=== PATIENT | female | born 1975 | race Asian ===

== ENCOUNTER 2016-10-18 05:50 | Observation (INO) | payer OTHER ==
[2016-10-18] VITALS (8 sets, daily range): BP systolic 112–133; BP diastolic 66–85
[~2016-10-18] VITALS: Ht 160 cm; Wt 74.8 kg
[~2016-10-18 05:50] MED LIST: DOCU-109 PO; FERR325T58 PO; IBUP-1027 PO; MULT1TAB52 PO; OXYC-323 PO
[2016-10-18 06:27] LABS: NEG OBC UR NEG; POS OBC UR POS
[2016-10-18 06:45] LABS: BASO # 0.1 x10^3/uL (0.0-0.2); BASO % 1 % (0-3); EOS % 2 % (0-3); HEMATOCRIT 39.2 % (36.0-47.0); HEMOGLOBIN 13.1 g/dL (12.0-15.5); LYMPH # 1.6 x10^3/uL (1.0-4.8); LYMPH % 18 % (24-48); MEAN CORPUSCULAR HEMOGLOBIN 29 pg (25-35); MEAN CORPUSCULAR HGB CONC 33 g/dL (31-37); MEAN CORPUSCULAR VOLUME 88 fL (79-100); MONO % 6 % (0-9); NEUT % 74 % (31-73); PLATELET COUNT 193 x10^3/uL (140-400); RED BLOOD COUNT 4.46 x10^6/uL (3.50-5.40); RED CELL DISTRIBUTION WIDTH 13.8 % (11.5-14.5); WHITE BLOOD COUNT 8.9 x10^3/uL (4.0-11.0)
[2016-10-18] MEDS ORDERED: LIDOCAINE 1% 1 ML SYRINGE. ID PRN (07:00)
[2016-10-18] MEDS ORDERED: MORPHINE SULFATE 2 MG/ML DISP.SYRIN. IV PRN (07:00)
[2016-10-18] MEDS ORDERED: HYDROmorphone 2 MG/ML VIAL IV PRN (07:00)
[2016-10-18] MEDS ORDERED: IV RINGERS,LACTATED 1000ML 1,000 ML IV SCH (07:00)
[2016-10-18] MEDS ORDERED: fentaNYL PF VIAL 100 MCG/2 ML VIAL IV PRN (07:00)
[2016-10-18] MEDS ORDERED: ONDANSETRON PF 4 MG/2 ML VIAL. IV PRN ×2 (07:00→10:30)
[2016-10-18] MEDS ORDERED: PROCHLORPERAZINE 10 MG/2 ML VIAL. IV PRN ×2 (07:00→10:30)
[2016-10-18] MEDS ORDERED: LIDOCAINE 1%/EPI 1:100,000 20 ML VIAL. ONE (07:08)
[2016-10-18] MEDS ORDERED: BUPIVACAINE MPF 0.25% 30 ML VIAL. ONE (07:08)
[2016-10-18] MEDS ORDERED: SURGICEL HEMOSTAT 4X8 EACH. ONE (07:08)
[2016-10-18] MEDS ORDERED: ESTROGENS, CONJ VAGINAL CREAM 30GM TUBE. ONE (07:08)
[2016-10-18] MEDS ORDERED: INDIGOTINDISULFONATE SODIUM 40 MG/5 ML AMPUL. IV ONE (07:15)
[2016-10-18] MEDS ORDERED: LIDOCAINE 2% PF Vial for OR 5 ML VIAL. ONE (07:23)
[2016-10-18] MEDS ORDERED: ROCURONIUM 100 MG/10 ML VIAL. ONE (07:23)
[2016-10-18] MEDS ORDERED: fentaNYL PF VIAL 100 MCG/2 ML VIAL ONE ×3 (07:23→10:32)
[2016-10-18] MEDS ORDERED: DEXAMETHASONE SOD PHOS 20 MG/5 ML VIAL. ONE (07:23)
[2016-10-18] MEDS ORDERED: ONDANSETRON PF 4 MG/2 ML VIAL. ONE (07:23)
[2016-10-18] MEDS ORDERED: PROPOFOL 20 ML IV ONE (07:23)
[2016-10-18] MEDS ORDERED: MIDAZOLAM HCL/PF 2 MG/2 ML VIAL. ONE (07:24)
[2016-10-18] MEDS ORDERED: BUPIVAC MPF-EPI 0.5%-1:200000 30 ML VIAL. ONE (07:39)
[2016-10-18] MEDS ORDERED: FAMOTIDINE 20 MG/2 ML VIAL ONE (08:46)
[2016-10-18] MEDS ORDERED: GELATIN MUCOSAL POWDER. ONE (09:48)
[2016-10-18] MEDS ORDERED: THROMBIN TOPICAL 5,000 UNIT VIAL. ONE (09:50)
[2016-10-18] MEDS ORDERED: DESFLURANE > 120 MINUTES IH ONE (09:54)
[2016-10-18] MEDS ORDERED: NEOSTIGMINE 10 MG/10 ML VIAL. ONE (09:57)
[2016-10-18] MEDS ORDERED: GLYCOPYRROLATE 1 MG/5 ML VIAL. ONE (09:57)
[2016-10-18] MEDS ORDERED: ceFAZolin 2GM PREMIX 2 GM/50 ML BAG IV ONE (10:00)
[2016-10-18] MEDS ORDERED: KETOROLAC 30 MG/ML INJ FOR OR. INJ ONE (10:00)
[2016-10-18] MEDS ORDERED: diphenhydrAMINE HCL 25 MG CAPSULE PO PRN (10:30)
[2016-10-18] MEDS ORDERED: CALCIUM CARBONATE 500 MG TAB.CHEW PO PRN (10:30)
[2016-10-18] MEDS ORDERED: diphenhydrAMINE 50 MG/ML VIAL IV PRN (10:30)
[2016-10-18] MEDS ORDERED: ZOLPIDEM 5 MG TABLET. PO PRN (10:30)
[2016-10-18] MEDS ORDERED: KETOROLAC TROMETHAMINE 30 MG/ML INJ. IV PRN (10:30)
[2016-10-18] MEDS ORDERED: 0.9 % SODIUM CHLORIDE 10 ML DISP.SYRIN. IV PRN (10:30)
[2016-10-18] MEDS ORDERED: DEXTROSE 50% 25 GM / 50ML DISP.SYRIN. IV PRN (10:30)
[2016-10-18] MEDS ORDERED: SIMETHICONE 80 MG TAB.CHEW PO PRN (10:30)
--- NOTE | 2016-10-18 10:30 | PDOC ---
BRIEF OPERATIVE NOTE Pre-Op Diagnosis 1. Endometriosis 2. Dysmenorrhea 3. CPP Post-Op Diagnosis SAme and Fibroids Procedure Performed LAV & RSO Surgeon Dr. Salgado Anesthesia Type: General Blood Loss 400 ml Specimens Obtained uterus, cervix, right fallopian tube and right ovary Findings Endometriosis stage 4 with obliterated culde sac, bilateral ovarian endometriomas, pelvic sidewall adhesions; nml left fallopian tube and ovary. Complications none ALKA SALGADO Jr, MD Oct 18, 2016 10:30
[2016-10-18] MEDS ORDERED: PROCHLORPERAZINE 10 MG/2 ML VIAL. ONE (10:32)
[2016-10-18] MEDS: fentaNYL PF VIAL 100 MCG/2 ML VIAL IV PRN ×2 (10:34→11:00)
--- NOTE | 2016-10-18 11:35 | OP ---
DATE OF SURGERY: PREOPERATIVE DIAGNOSES: 1. Endometriosis. 2. Dysmenorrhea. 3. Chronic pelvic pain. POSTOPERATIVE DIAGNOSES: 1. Endometriosis. 2. Dysmenorrhea. 3. Chronic pelvic pain. 4. Fibroids. PROCEDURE: LAVH-RSO. SURGEON: Dr. Alka Salgado. ANESTHESIA: GETA. ESTIMATED BLOOD LOSS: 400 mL. COMPLICATIONS: None. FINDINGS: Endometriosis stage 4 with an obliterated cul-de-sac, bilateral ovarian endometriomas, pelvic sidewall adhesions, normal left fallopian tube and ovary. SUMMARY: A 40-year-old female, 7-year history of chronic pelvic pain and stage 4 endometriosis. The patient had been treated previously with Depo Lupron for 6 months prior to surgery. The patient required hysterectomy. The patient was counseled on LAVH-RSO and voiced a clear understanding to proceed. DESCRIPTION OF PROCEDURE: The patient was taken to surgery suite and placed in dorsal lithotomy position. She was prepped with Betadine solution for vaginal prep and ChloraPrep for abdominal prep. After adequate anesthesia, bivalve speculum was placed vaginally. Anterior lip of the cervix was grasped with a single-toothed tenaculum. The Yumber uterine manipulator was then placed. The bivalve speculum was removed. Attention was now placed on abdomen. Small transverse skin incision made just below the umbilicus with scalpel. Veress needle was then placed through the infraumbilical incision site. The abdomen was allowed to insufflate up to 1-1/2 liters CO2 gas. Veress needle was then removed, 5 mm trocar was placed. Scope was positioned. Uterus was enlarged with multiple fibroids, pelvic sidewall, multiple pelvic several adhesions involving bilateral fallopian tubes and ovaries as well as bilateral ovarian cysts. Two additional incisions made in the left lower quadrant, at which 5 mm trocars were placed. Suprapubic incision site was made, at which a 5 mm trocar was placed as well. With the aid of graspers and EnSeal device, the right round ligament was coagulated and dissected. The right infundibulopelvic ligament was coagulated and dissected. There were endometrioma that was incised and drained. The right pelvic sidewall as well as the right broad ligament was coagulated and dissected. The posterior pelvic adhesions were dissected ____. The left round ligament was coagulated and dissected with EnSeal device. The uteroovarian pedicle was partially coagulated and dissected. Due to the fibroids and the obliterated cul-de-sac, we then proceeded vaginally. Attention was placed vaginally in which a weighted speculum and curved Estefany was placed. Some of the cervix was grasped on the anterior lip and posterior lip with double tooth tenaculum. 1% lidocaine with epinephrine was injected circumferentially. Bovie cautery was utilized to circumscribe the cervix. The vaginal mucosa was dissected away from the lower uterine segment using a moist Ray-Vidal. The parametrial tissue was clamped bilaterally with curved Ritesh clamp, cut and suture ligated with 2-0 Vicryl suture. We then entered the posterior cul-de-sac sharply using curved Castillo scissors. The long weighted speculum was then placed. The uterine artery was clamped bilaterally, cut, and suture ligated. The uterosacral ligament was then clamped, cut, tied with 2-0 Vicryl suture as well. The uterus was bivalved and removed. The right fallopian tube and ovary was also removed. The pedicles were hemostatic. A modified Evans culdoplasty was performed incorporating the uterosacral ligaments bilaterally. The remainder of the vaginal cuff was reapproximated using 2-0 Vicryl suture in a [id number] manner. Moist vaginal packing was placed. Attention was then placed on abdomen. The abdomen was insufflated up to 1-1/2 liters CO2 gas. The pedicles were visualized with suction irrigation and appeared to be hemostatic. We did use the Gelfoam powder to ensure good hemostasis along the posterior vaginal cuff. The trocars were then removed under direct visualization. The abdomen was allowed to deflate as much as possible along with mechanical manipulation. The four skin incisions were reapproximated using 4-0 Vicryl suture in subcuticular manner. A 0.5% lidocaine with epinephrine was injected at each incision site. The patient tolerated the procedure well and was taken to recovery room in stable condition. Sponge and needle count correct x 3. ALKA SALGADO MD DR: LIBIA/angeles JOB#: [id number] / [id number]
[2016-10-18] MEDS: GABAPENTIN 300 MG CAPSULE. PO SCH ×2 (15:10→21:54)
[2016-10-18] MEDS: oxyCODONE/APAP 5/325 1 TAB TABLET PO PRN (21:56)
[2016-10-19 00:11] VITALS: BP 130/73
[2016-10-19 01:12] LABS: BASO % 0 % (0-3); EOS % 0 % (0-3); HEMATOCRIT 34.1 % (36.0-47.0); HEMOGLOBIN 11.5 g/dL (12.0-15.5); LYMPH % 6 % (24-48); MEAN CORPUSCULAR HEMOGLOBIN 29 pg (25-35); MEAN CORPUSCULAR HGB CONC 34 g/dL (31-37); MEAN CORPUSCULAR VOLUME 87 fL (79-100); MONO % 4 % (0-9); NEUT % 90 % (31-73); PLATELET COUNT 207 x10^3/uL (140-400); RED BLOOD COUNT 3.94 x10^6/uL (3.50-5.40); RED CELL DISTRIBUTION WIDTH 13.4 % (11.5-14.5); WHITE BLOOD COUNT 16.1 x10^3/uL (4.0-11.0)
[2016-10-19 05:32] LABS: PLT ESTIMATE ADEQUATE (ADEQUATE)
[2016-10-19 05:42] VITALS: BP 139/73
[2016-10-19] MEDS: GABAPENTIN 300 MG CAPSULE. PO SCH (06:23)
[2016-10-19] MEDS: oxyCODONE/APAP 5/325 1 TAB TABLET PO PRN ×2 (08:41→12:17)
--- NOTE | 2016-10-19 09:04 | PDOC ---
SURGICAL PROGRESS NOTE Subjective Pt. feeling well. Ambulating, voiding and tolerating regular diet. Vital Signs Vital Signs Date Time Temp Pulse Resp B/P (MAP) Pulse Ox O2 Delivery O2 Flow Rate FiO2 10/19/16 08:41 20 Room Air 10/19/16 05:42 98.1 73 139/73 (95) 96 98.1 10/18/16 11:30 2.0 I&O Intake and Output 10/19/16 07:00 Intake Total 600 ml Output Total 3080 ml Balance -2480 ml Intake Oral 600 ml Output Urine Total 3080 ml PATIENT HAS A CLARK: No General: Alert, Oriented X3, Cooperative HEENT: Atraumatic Lungs: Clear to auscultation Heart: Regular rate Abdomen: Normal bowel sounds, Soft, No masses Psych/Mental Status: Mental status NL Labs Laboratory Tests Test 10/18/16 06:10 10/18/16 06:30 10/19/16 00:45 Urine Test Negative (NEG) White Blood Count 8.9 x10^3/uL (4.0-11.0) 16.1 x10^3/uL (4.0-11.0) Red Blood Count 4.46 x10^6/uL (3.50-5.40) 3.94 x10^6/uL (3.50-5.40) Hemoglobin 13.1 g/dL (12.0-15.5) 11.5 g/dL (12.0-15.5) Hematocrit 39.2 % (36.0-47.0) 34.1 % (36.0-47.0) Mean Corpuscular Volume 88 fL (79-100) 87 fL (79-100) Mean Corpuscular Hemoglobin 29 pg (25-35) 29 pg (25-35) Mean Corpuscular Hemoglobin Concent 33 g/dL (31-37) 34 g/dL (31-37) Red Cell Distribution Width 13.8 % (11.5-14.5) 13.4 % (11.5-14.5) Platelet Count 193 x10^3/uL (140-400) 207 x10^3/uL (140-400) Neutrophils (%) (Auto) 74 % (31-73) 90 % (31-73) Lymphocytes (%) (Auto) 18 % (24-48) 6 % (24-48) Monocytes (%) (Auto) 6 % (0-9) 4 % (0-9) Eosinophils (%) (Auto) 2 % (0-3) 0 % (0-3) Basophils (%) (Auto) 1 % (0-3) 0 % (0-3) Neutrophils # (Auto) 6.6 x10^3uL (1.8-7.7) 14.4 x10^3uL (1.8-7.7) Lymphocytes # (Auto) 1.6 x10^3/uL (1.0-4.8) 1.0 x10^3/uL (1.0-4.8) Monocytes # (Auto) 0.5 x10^3/uL (0.0-1.1) 0.7 x10^3/uL (0.0-1.1) Eosinophils # (Auto) 0.1 x10^3/uL (0.0-0.7) 0.0 x10^3/uL (0.0-0.7) Basophils # (Auto) 0.1 x10^3/uL (0.0-0.2) 0.0 x10^3/uL (0.0-0.2) Segmented Neutrophils % 94 % (35-66) Band Neutrophils % 1 % (0-9) Lymphocytes % 4 % (24-48) Monocytes % 1 % (0-10) Platelet Estimate Adequate (ADEQUATE) Laboratory Tests Test 10/19/16 00:45 White Blood Count 16.1 x10^3/uL (4.0-11.0) Red Blood Count 3.94 x10^6/uL (3.50-5.40) Hemoglobin 11.5 g/dL (12.0-15.5) Hematocrit 34.1 % (36.0-47.0) Mean Corpuscular Volume 87 fL (79-100) Mean Corpuscular Hemoglobin 29 pg (25-35) Mean Corpuscular Hemoglobin Concent 34 g/dL (31-37) Red Cell Distribution Width 13.4 % (11.5-14.5) Platelet Count 207 x10^3/uL (140-400) Neutrophils (%) (Auto) 90 % (31-73) Lymphocytes (%) (Auto) 6 % (24-48) Monocytes (%) (Auto) 4 % (0-9) Eosinophils (%) (Auto) 0 % (0-3) Basophils (%) (Auto) 0 % (0-3) Neutrophils # (Auto) 14.4 x10^3uL (1.8-7.7) Lymphocytes # (Auto) 1.0 x10^3/uL (1.0-4.8) Monocytes # (Auto) 0.7 x10^3/uL (0.0-1.1) Eosinophils # (Auto) 0.0 x10^3/uL (0.0-0.7) Basophils # (Auto) 0.0 x10^3/uL (0.0-0.2) Segmented Neutrophils % 94 % (35-66) Band Neutrophils % 1 % (0-9) Lymphocytes % 4 % (24-48) Monocytes % 1 % (0-10) Platelet Estimate Adequate (ADEQUATE) Assessment/Plan A: POD#1 s/p LAVH & RSO P: D/c home. Problems: ALKA HALE Jr, MD Oct 19, 2016 09:04
--- NOTE | 2016-10-19 09:06 | DISCH ---
DISCHARGE INSTRUCTIONS Condition on Discharge Condition on Discharge: Stable Activity After Discharge Activity Instructions for Disc: Activity as tolerated Lifting Instructions after Dis: No heavy lifting Driving Instructions after Dis: No driving for 2 weeks Diet after Discharge Diet after Discharge: Regular Contacting the DRPancho after DC Call your doctor for: Concerns you may have Follow-Up Follow up with: Dr. Salgado in 1 week. ALKA SALGADO Jr, MD Oct 19, 2016 09:06
[2016-10-19] MEDS ORDERED: DOCU-109 PO (09:07)
[2016-10-19] MEDS ORDERED: OXYC-323 PO (09:07)
[2016-10-19] MEDS ORDERED: IBUP-1060 PO (09:07)
[2016-10-19 11:00] VITALS: BP 115/57
[2016-10-19 13:30] VITALS: BP 126/87
--- NOTE | 2016-10-22 13:41 | PATHOLOGY ---
PATHOLOGY REPORT * * * * * * * * FINAL DIAGNOSIS: Uterus and detached fallopian tube and ovary, laparoscopic-assisted vaginal hysterectomy with right salpingo-oophorectomy: - Leiomyomas, uterine corpus, subserosal and intramural, multiple, the largest measuring 2.4 cm (uterine weight 141 grams). - Eversion of endocervix with active chronic cervicitis and focal squamous metaplasia. - Uterine serosal adhesions. - Secretory pattern endometrium showing stromal decidualization with shrunken inactive endometrial glands consistent with progesterone effect. - Adenomyosis, uterine corpus, subbasal, focal. - Congestion of right fallopian tube. - Endometriosis of right ovary, cystic. COMMENT: There is no evidence of malignancy. (JPM:mgr; 10/22/2016) REPORT ELECTRONICALLY SIGNED BY: Primo Ordaz M.D. DATE/TIME: 10/22/2016 13:40 * * * * * * * * GROSS PATHOLOGY: The specimen is received in formalin labeled "Rosalind Vera, uterus, cervix, right tube and ovary". Received is a 141 g, 9.2 x 6.3 x 5.5 cm uterus with attached cervix and detached adnexa, weighing 17 g. The uterine serosa is light goodrich to pink-goodrich in appearance with a moderate amount of overlying adhesions. The 0.8 cm cervical os is surrounded by pale goodrich, smooth to goodrich-brown, granular ectocervical mucosa. The uterus is oriented using the peritoneal reflection and the anterior paracervical margin is inked black. The uterus is opened longitudinally to reveal a light brown endocervical canal measuring 3.3 cm in length. The endometrial cavity is triangular measuring 3.2 cm in length by 2.1 cm in width. The endometrium is pink-goodrich, glistening in appearance and measures 0.1 cm in thickness. Serial sectioning reveals a pink-goodrich, trabeculated myometrium measuring up to 3.5 cm in thickness displaying multiple intramural and subserosal fibroids ranging in size from 0.5 to 2.4 cm. The detached adnexa consists of a fimbriated fallopian tube measuring 5.9 cm in length by up to 0.8 cm in diameter attached to a 3.6 x 2.8 x 2.2 cm previously ruptured cystic ovary. Sectioning through the fallopian tube reveals a pinpoint to patent lumen and the fallopian tube appears grossly unremarkable. Sectioning through the ovary reveals a unilocular cystic structure measuring 1.7 cm filled with a slight amount of blood coagulum. A slight amount of normal pale-goodrich ovarian stroma is identified. The specimen is submitted representatively as follows: A1 12:00 cervix A2 6:00 cervix A3 account representative sections of uterine serosal adhesions A4 anterior endomyometrium A5 posterior endometrium A6 account representative sections of intramural fibroids A7-A8 account representative sections of detached adnexa. (CAA; 10/19/2016) INITIAL CPT CODE(S): 73493 Professional services performed by [facility] at [address] [address] Technical services performed by [facility] at [address] [place] [address], [address], [place] [address]. YADIRA Blandon fax: SPECIMEN(S) RECEIVED: A.Uterus, cervix, right tube and ovary CLINICAL HISTORY: Dysmenorrhea, endometriosis PATIENT: MALIK ROSALIND /AGE: 811/04/1975 (Age: 40) PATIENT #: [id number] ALT CASE #: SPECIMEN COLLECTION DATE: 10/18/2016 SPECIMEN RECEIVED DATE: 10/18/2016 [facility] - [id number] [place] [address] - PHONE: [phone] * * * END OF REPORT * * *
== END 2016-10-19 15:03 | disposition home or self-care (01) ==
LOC: SURG 05:50 → 3 NORTH 10:30
PROVIDERS: ADMIT Obstetrics & Gynecology; ATTEND Obstetrics & Gynecology
DX: N80.1 Endometriosis of ovary (principal); N94.6 Dysmenorrhea, unspecified; D25.9 Leiomyoma of uterus, unspecified; G89.29 Other chronic pain; N80.3 Endometriosis of pelvic peritoneum; N73.6 Female pelvic peritoneal adhesions (postinfective); N83.201 Unspecified ovarian cyst, right side; N83.202 Unspecified ovarian cyst, left side
CPT/HCPCS: 36415; 58552; 81025; 85007; 85027; 86850; 86900; 86901; 96374; A4215; G0378; G0379; J0690; J0780; J1100; J1885; J2001; J2250; J2405; J2704; J2710; J3010; J3490; J7030; J7120; S0028; 88307